=== PATIENT | male | born 1980 | race African-American/Black ===

== ENCOUNTER 2018-07-18 20:17 | Emergency (ER) | payer MEDICAID, SELFPAY ==
[2018-07-18] MEDS ORDERED: Ketorolac Tromethamine 30 MG/ML VIAL ONE (21:29)
[2018-07-18] MEDS ORDERED: Diazepam 5 MG TAB ONE (21:37)
== END 2018-07-18 22:43 | disposition home or self-care (01) ==
LOC: ERS 20:17
DX: M79.1 Myalgia (principal); V43.62XA Car passenger injured in collision with other type car in traffic accident, initial encounter
CPT/HCPCS: 96372; J1885